=== PATIENT | female | born 1970 | race Caucasian/White ===

== ENCOUNTER 2017-04-12 03:07 | Emergency (ER) | payer BC, OTHER ==
[~2017-04-12] VITALS: Ht 162.6 cm; Wt 66.0 kg
[~2017-04-12 03:07] MED LIST: LIOT25 PO; PROG1CAP20 PO; SYNT88TA PO
[2017-04-12] MEDS ORDERED: LEVO.125 PO (03:16)
[2017-04-12] MEDS ORDERED: CYTO25TA PO (03:16)
[2017-04-12] MEDS ORDERED: SPIR25TA PO (03:16)
[2017-04-12 03:17] VITALS: BP 136/72; PULSE 88; RESP 16; TEMP 98.2; O2SAT 100
[2017-04-12] MEDS ORDERED: SODIUM CHLOR 0.9% 1000 ML INJ 1,000 ML IV ONE (03:25)
[2017-04-12] MEDS ORDERED: METOCLOPRAMIDE HCL 10 MG/2 ML VIAL IVP ONE (03:30)
[2017-04-12] MEDS ORDERED: DEXAMETHASONE SOD PHOS 20 MG/5 ML VIAL IV PUSH ONE (03:30)
[2017-04-12 03:54] LABS: AUTOMATED NEUTROPHIL # 10.5 TH/MM3 (1.8-7.7); BASOPHIL % 0.3 % (0.0-2.0); EOSINOPHIL % 0.2 % (0.0-4.0); HEMATOCRIT 41.9 % (35.0-46.0); HEMO FLAGS DIFF FINAL; LYMPH % 18.5 % (9.0-44.0); LYMPHOCYTE # 2.5 TH/MM3 (1.0-4.8); MEAN CELL VOLUME 87.7 FL (80.0-100.0); MEAN CORPUSCULAR HEMOGLOBIN 30.4 PG (27.0-34.0); MEAN CORPUSCULAR HGB CONC 34.7 % (32.0-36.0); MONO % 4.4 % (0.0-8.0); NEUT % 76.6 % (16.0-70.0); PLATELET COUNT 217 TH/MM3 (150-450); RED BLOOD COUNT 4.78 MIL/MM3 (4.00-5.30); RED CELL DISTRIBUTION WIDTH 13.4 % (11.6-17.2); WHITE BLOOD COUNT 13.7 TH/MM3 (4.0-11.0)
[2017-04-12 04:01] LABS: APTT (PATIENT) 25.2 SEC (24.3-30.1); INTERNATIONAL NORMALIZED RATIO 0.9 RATIO; PROTHROMBIN TIME - PATIENT 10.1 SEC (9.8-11.6)
--- NOTE | 2017-04-12 04:02 | RADRPT ---
EXAM DATE/TIME: 04/12/2017 03:37 [place] COMPARISON: No previous studies available for comparison. INDICATIONS : Cephalgia, right side of head. RADIATION DOSE: 56.35 CTDIvol (mGy) MEDICAL HISTORY : None SURGICAL HISTORY : None. ENCOUNTER: Initial ACUITY: 1 week PAIN SCALE: 3/10 LOCATION: Right cranial TECHNIQUE: Multiple contiguous axial images were obtained of the head. Using automated exposure control and adj ustment of the mA and/or kV according to patient size, radiation dose was kept as low as reasonably a chievable to obtain optimal diagnostic quality images. DICOM format image data is available electro nically for review and comparison. FINDINGS: CEREBRUM: The ventricles are normal for age. No evidence of midline shift, mass lesion, hemorrhage or acute in farction. No extra-axial fluid collections are seen. POSTERIOR FOSSA: The cerebellum and brainstem are intact. The 4th ventricle is midline. The cerebellopontine angle i s unremarkable. EXTRACRANIAL: The visualized portion of the orbits is intact. Tiny foci of soft tissue air involving the infratempo ral fossa as well as extending along the right temporal bone. I appreciate no fracture. SKULL: The calvaria is intact. No evidence of skull fracture. CONCLUSION: 1. No acute intracranial abnormality. 2. Tiny foci of soft tissue air involving the infratemporal fossa on the right with extension along t he right temporal bone. Typically this finding is associated with some form of trauma. It can relate to trauma to the right maxillary sinus but can also relate to trauma to the mandible with occult frac ture into the mastoid air cells. I do not see any fracture on this study. Alternatively, a soft tissu e infection could have a similar appearance. Judah Davalos Jr., MD on April 12, 2017 at 3:57 Board Certified Radiologist. This report was verified electronically.
[2017-04-12 04:13] LABS: BICARBONATE 25.8 MEQ/L (21.0-32.0); POTASSIUM 3.4 MEQ/L (3.5-5.1)
[2017-04-12] MEDS ORDERED: KETOROLAC TROMETHAMINE 30 MG/ML (IVP) VIAL IV PUSH ONE (04:30)
--- NOTE | 2017-04-12 04:40 | PD ---
HPI Chief Complaint: Headache Time Seen by Provider: 03:25 Travel History International Travel<30 days: No Contact w/Intl Traveler<30days: No Traveled to known affect area: No History of Present Illness HPI Patient is a 47 year old female who presents to ER with complaints of frontal headache for the past few days. No fever/chills. Denies any trauma PFSH Past Medical History Immunizations Current: Yes Thyroid Disease: Yes (hypo) Tetanus Vaccination: Never Vaccinated Influenza Vaccination: Yes ?: Not LMP: 03/22/17 Social History Alcohol Use: No Tobacco Use: No Substance Use: No Allergies-Medications (Allergen,Severity, Reaction): Coded Allergies: Sulfa (Sulfonamide Antibiotics) (Unverified Allergy, Severe, ANAPHYLAXIS, 04/12/17) Tetanus Vaccines and Toxoid (Verified Allergy, Severe, Anaphylaxis, ) asparagus (Unverified Allergy, Severe, DYSPNEA, 04/12/17) clindamycin (Unverified Allergy, Severe, DYSPNEA, 04/12/17) codeine (Unverified Allergy, Severe, CONFUSION, HALLUCINATIONS, 04/12/17) diazepam (Unverified Allergy, Severe, DYSPNEA, 04/12/17) fluticasone (Verified Allergy, Severe, Respiratory Failure, 04/12/17) penicillin G (Unverified Allergy, Severe, DYSPNEA, 04/12/17) vancomycin (Verified Allergy, Severe, Rash, 04/12/17) shellfish derived (Unverified Allergy, Intermediate, ITCH, 04/12/17) Reported Meds & Prescriptions Reported Meds & Active Scripts Active Reported Spironolactone 25 Mg Tab 25 Mg PO DAILY Cytomel (Liothyronine Sodium) 25 Mcg Tab 25 Mcg PO DAILY Synthroid (Levothyroxine Sodium) 125 Mcg Tab 125 Mcg PO DAILY Review of Systems General / Constitutional: No: Fever Eyes: No: Visual changes HENT: Positive: Headaches, No: Vertigo, Lightheadedness Cardiovascular: No: Chest Pain or Discomfort Respiratory: No: Shortness of Breath Gastrointestinal: No: Abdominal Pain Genitourinary: No: Dysuria Musculoskeletal: No: Pain Skin: No Rash Neurologic: No: Weakness Psychiatric: No: Depression Endocrine: No: Polydipsia Hematologic/Lymphatic: No: Easy Bruising Physical Exam Narrative GENERAL: mild distress SKIN: Focused skin assessment warm/dry. HEAD: Atraumatic. Normocephalic. EYES: Pupils equal and round. No scleral icterus. No injection or drainage. ENT: No nasal bleeding or discharge. Mucous membranes pink and moist. NECK: Trachea midline. No JVD. CARDIOVASCULAR: Regular rate and rhythm. No murmur appreciated. RESPIRATORY: No accessory muscle use. Clear to auscultation. Breath sounds equal bilaterally. GASTROINTESTINAL: Abdomen soft, non-tender, nondistended. Hepatic and splenic margins not palpable. MUSCULOSKELETAL: No obvious deformities. No clubbing. No cyanosis. No edema. NEUROLOGICAL: Awake and alert. No obvious cranial nerve deficits. Motor grossly within normal limits. Normal speech. PSYCHIATRIC: Appropriate mood and affect; insight and judgment normal. Data Data Last Documented VS Vital Signs Date Time Temp Pulse Resp B/P (MAP) Pulse Ox O2 Delivery O2 Flow Rate FiO2 04/12/17 03:17 98.2 88 16 136/72 (93) 100 Orders Orders Complete Blood Count With Diff (04/12/17 03:25) Basic Metabolic Panel (Bmp) (04/12/17 03:25) Prothrombin Time / Inr (Pt) (04/12/17 03:25) Act Partial Throm Time (Ptt) (04/12/17 03:25) Ct Brain W/O Iv Contrast(Rout) (04/12/17 03:25) Iv Access Insert/Monitor (04/12/17 03:25) Metoclopramide Inj (Reglan Inj) (04/12/17 03:30) Sodium Chlor 0.9% 1000 Ml Inj (Ns 1000 M (04/12/17 03:25) Dexamethasone Inj (Decadron Inj) (04/12/17 03:30) Ketorolac Inj (Toradol Inj) (04/12/17 04:30) Labs Laboratory Tests Test 04/12/17 02:45 White Blood Count 13.7 TH/MM3 Red Blood Count 4.78 MIL/MM3 Hemoglobin 14.5 GM/DL Hematocrit 41.9 % Mean Corpuscular Volume 87.7 FL Mean Corpuscular Hemoglobin 30.4 PG Mean Corpuscular Hemoglobin Concent 34.7 % Red Cell Distribution Width 13.4 % Platelet Count 217 TH/MM3 Mean Platelet Volume 9.4 FL Neutrophils (%) (Auto) 76.6 % Lymphocytes (%) (Auto) 18.5 % Monocytes (%) (Auto) 4.4 % Eosinophils (%) (Auto) 0.2 % Basophils (%) (Auto) 0.3 % Neutrophils # (Auto) 10.5 TH/MM3 Lymphocytes # (Auto) 2.5 TH/MM3 Monocytes # (Auto) 0.6 TH/MM3 Eosinophils # (Auto) 0.0 TH/MM3 Basophils # (Auto) 0.0 TH/MM3 CBC Comment DIFF FINAL Differential Comment Prothrombin Time 10.1 SEC Prothromb Time International Ratio 0.9 RATIO Activated Partial Thromboplast Time 25.2 SEC Blood Urea Nitrogen 23 MG/DL Creatinine 0.75 MG/DL Random Glucose 135 MG/DL Calcium Level 9.7 MG/DL Sodium Level 140 MEQ/L Potassium Level 3.4 MEQ/L Chloride Level 105 MEQ/L Carbon Dioxide Level 25.8 MEQ/L Anion Gap 9 MEQ/L Estimat Glomerular Filtration Rate 83 ML/MIN MDM Medical Decision Making Medical Screen Exam Complete: Yes Emergency Medical Condition: Yes Medical Record Reviewed: Yes Interpretation(s) Vital Signs Date Time Temp Pulse Resp B/P (MAP) Pulse Ox O2 Delivery O2 Flow Rate FiO2 04/12/17 03:17 98.2 88 16 136/72 (93) 100 Laboratory Tests Test 04/12/17 02:45 White Blood Count 13.7 TH/MM3 (4.0-11.0) Red Blood Count 4.78 MIL/MM3 (4.00-5.30) Hemoglobin 14.5 GM/DL (11.6-15.3) Hematocrit 41.9 % (35.0-46.0) Mean Corpuscular Volume 87.7 FL (80.0-100.0) Mean Corpuscular Hemoglobin 30.4 PG (27.0-34.0) Mean Corpuscular Hemoglobin Concent 34.7 % (32.0-36.0) Red Cell Distribution Width 13.4 % (11.6-17.2) Platelet Count 217 TH/MM3 (150-450) Mean Platelet Volume 9.4 FL (7.0-11.0) Neutrophils (%) (Auto) 76.6 % (16.0-70.0) Lymphocytes (%) (Auto) 18.5 % (9.0-44.0) Monocytes (%) (Auto) 4.4 % (0.0-8.0) Eosinophils (%) (Auto) 0.2 % (0.0-4.0) Basophils (%) (Auto) 0.3 % (0.0-2.0) Neutrophils # (Auto) 10.5 TH/MM3 (1.8-7.7) Lymphocytes # (Auto) 2.5 TH/MM3 (1.0-4.8) Monocytes # (Auto) 0.6 TH/MM3 (0-0.9) Eosinophils # (Auto) 0.0 TH/MM3 (0-0.4) Basophils # (Auto) 0.0 TH/MM3 (0-0.2) CBC Comment DIFF FINAL Differential Comment Prothrombin Time 10.1 SEC (9.8-11.6) Prothromb Time International Ratio 0.9 RATIO Activated Partial Thromboplast Time 25.2 SEC (24.3-30.1) Blood Urea Nitrogen 23 MG/DL (7-18) Creatinine 0.75 MG/DL (0.50-1.00) Random Glucose 135 MG/DL (74-106) Calcium Level 9.7 MG/DL (8.5-10.1) Sodium Level 140 MEQ/L (136-145) Potassium Level 3.4 MEQ/L (3.5-5.1) Chloride Level 105 MEQ/L (98-107) Carbon Dioxide Level 25.8 MEQ/L (21.0-32.0) Anion Gap 9 MEQ/L (5-15) Estimat Glomerular Filtration Rate 83 ML/MIN (>89) Last Impressions Head CT 04/12/17 0325 Signed Impressions: Service Date/Time: Wednesday, April 12, 2017 03:37 - CONCLUSION: 1. No acute intracranial abnormality. 2. Tiny foci of soft tissue air involving the infratemporal fossa on the right with extension along the right temporal bone. Typically this finding is associated with some form of trauma. It can relate to trauma to the right maxillary sinus but can also relate to trauma to the mandible with occult fracture into the mastoid air cells. I do not see any fracture on this study. Alternatively, a soft tissue infection could have a similar appearance. Judah Davalos Jr., MD Differential Diagnosis cephalgia, electrolyte abnormality, ich, intracranial process Narrative Course 47-year-old female who presents to emergency room with complaints of headache. labs and studies reviewed, she will follow up with pcp and will return to ER as needed Diagnosis Primary Impression: Cephalgia Qualified Codes: R51 - Headache Patient Instructions: General Instructions Disposition: 01 DISCHARGE HOME Condition: Stable Awa Washington DO Apr 12, 2017 04:40
== END 2017-04-12 06:30 | disposition home or self-care (01) ==
LOC: NEPC 03:07
DX: R51 Headache (principal); E03.9 Hypothyroidism, unspecified
CPT/HCPCS: 70450; 80048; 85025; 85610; 85730; 96374; 96375; 99285; J1100; J1885; J2765; J7030